=== PATIENT | male | born 2000 | race Caucasian/White ===

== ENCOUNTER 2019-09-04 02:30 | Emergency (ER) | payer OTHER ==
[~2019-09-04] VITALS: Ht 172.7 cm; Wt 68.2 kg
[2019-09-04 02:38] VITALS: TEMP 98.3
[2019-09-04] MEDS ORDERED: ZYRTEC 10MG10 MG PO (02:41)
[2019-09-04] MEDS ORDERED: FLAGYL500 MG PO (03:38)
[2019-09-04] MEDS ORDERED: PERCOCET 325 MG1 TA2 PO (03:38)
[2019-09-04] MEDS ORDERED: CIPRO 500MG TA500 MG PO (03:38)
[2019-09-04 04:15] VITALS: BP 115/67; PULSE 75
== END 2019-09-04 04:15 | disposition home or self-care (01) ==
LOC: COL.ER 02:30
DX: L05.01 Pilonidal cyst with abscess (principal)